=== PATIENT | female | born 1965 | race African-American/Black ===

== ENCOUNTER 2018-10-20 13:15 | Emergency (ER) | payer OTHER ==
[~2018-10-20] VITALS: Ht 170.2 cm; Wt 80.0 kg
[2018-10-20] MEDS ORDERED: BUPR75TA8 PO (13:22)
[2018-10-20] MEDS ORDERED: IBUPROFEN 600MG TABLET PO ONE (14:00)
[2018-10-20 14:14] VITALS: BP 130/84
== END 2018-10-20 15:47 | disposition home or self-care (01) ==
LOC: ER 13:25
DX: M25.512 Pain in left shoulder (principal); M25.511 Pain in right shoulder; Z79.899 Other long term (current) drug therapy
CPT/HCPCS: 99282

== ENCOUNTER 2018-10-21 04:02 | Emergency (ER) | payer OTHER ==
[~2018-10-21] VITALS: Ht 165.1 cm; Wt 88.0 kg
[~2018-10-21 04:02] MED LIST: BUPR75TA8 PO
[2018-10-21] MEDS ORDERED: IBUPROFEN 800MG TABLET PO ONE (05:15)
[2018-10-21] MEDS ORDERED: DEXAMETHASONE 10 MG/ML VIAL IM ONE (05:15)
[2018-10-21 05:30] VITALS: BP 103/61
[2018-10-21 09:23] LABS: *AMPHETAMINES SCREEN URINE NEGATIVE (NEGATIVE); *BARBITURATES SCREEN URINE NEGATIVE (NEGATIVE); *BENZODIAZEPINES SCREEN URINE NEGATIVE (NEGATIVE); *COCAINE SCREEN URINE PRESUMTIVE POSITIVE (NEGATIVE)
[2018-10-21 09:24] LABS: CANNABINOID URINE SCREEN NEGATIVE (NEGATIVE); METHADONE URINE SCREEN NEGATIVE (NEGATIVE); OPIATES URINE SCREEN NEGATIVE (NEGATIVE); PHENCYCLIDINE URINE SCREEN NEGATIVE (NEGATIVE)
[2018-10-21] MEDS ORDERED: DIPHENHYDRAMINE 25MG CAPSULE PO ONE (10:45)
== END 2018-10-21 12:00 | disposition home or self-care (01) ==
LOC: ER 04:02
DX: G89.29 Other chronic pain (principal); M25.512 Pain in left shoulder; M25.511 Pain in right shoulder; Z59.0 Homelessness; F17.200 Nicotine dependence, unspecified, uncomplicated
CPT/HCPCS: 80305; 96372; 99283; J1100; Q0163

== ENCOUNTER 2022-09-12 11:33 | Emergency (ER) | payer OTHER ==
[~2022-09-12] VITALS: Ht 165.1 cm; Wt 81.0 kg
[2022-09-12 11:36] VITALS: BP 117/90
[2022-09-12] MEDS ORDERED: GUAIFENESIN-DM 200MG-20MG/10ML UDC PO ONE (15:15)
[2022-09-12] MEDS ORDERED: GUAIFENESIN 200MG/10ML SUGAR FREE UDC PO ONE (15:45)
[2022-09-12 16:46] LABS: BASOPHILS % 0.8 % (0.0-2.0); EOSINOPHILS % 0.8 % (0.0-5.0); HEMATOCRIT. 41.5 % (36.0-48.0); HEMOGLOBIN. 14.3 g/dL (12.0-16.0); LYMPHOCYTES % 20.3 % (20.0-50.0); MEAN CORPUSCULAR VOLUME 92.9 fL (81.0-99.0); MEAN PLATELET VOLUME 7.1 fl (7.4-10.4); MONOCYTES % 10.4 % (2.0-8.0); NEUTROPHILS % 67.7 % (40.0-76.0); PLATELET 396 x1000/uL (130-400); RED BLOOD CELL COUNT 4.47 mill/uL (4.2-5.4); RED CELL DISTRIBUTION WIDTH 14.5 % (11.6-14.6)
[2022-09-12 16:48] LABS: CLARITY URINE CLEAR (CLEAR); COLOR URINE YELLOW (YELLOW); KETONES URINE TRACE (NEGATIVE); LEUKOCYTE ESTERASE URINE NEGATIVE (NEGATIVE); NITRITE URINE NEGATIVE (NEGATIVE); OCCULT BLOOD URINE NEGATIVE (NEGATIVE); PH URINE 5.5 (4.5-8.0); PROTEIN URINE TRACE (NEGATIVE); SPECIFIC GRAVITY URINE 1.022 (1.005-1.030)
[2022-09-12 16:56] LABS: CHLORIDE 102 mEq/L (98-107)
[2022-09-12] MEDS ORDERED: IMOD MT (17:29)
[2022-09-14 05:09] LABS: HIV SCREEN 4G Non Reactive (Non Reactive)
== END 2022-09-12 17:50 | disposition home or self-care (01) ==
LOC: ER 11:36
DX: R19.7 Diarrhea, unspecified (principal); J11.1 Influenza due to unidentified influenza virus with other respiratory manifestations; A64 Unspecified sexually transmitted disease
CPT/HCPCS: 36415; 80053; 81003; 85025; 86592; 87389; 99283